=== PATIENT | female | born 1980 | race Caucasian/White ===

== ENCOUNTER 2018-10-27 02:43 | Emergency (ER) | payer BC ==
[2018-10-27] MEDS ORDERED: carBAMazepine 200 MG TAB PO STA (03:17)
[2018-10-27] MEDS ORDERED: predniSONE 20 MG TAB PO STA (03:19)
--- NOTE | 2018-10-27 04:33 | ED ---
Extremity Problem HPI - General Chief complaint: Extremity Problem,Nontraumatic Stated complaint: Ankle pain Time Seen by Provider: 10/27/18 02:48 Source: patient Mode of arrival: ambulatory Limitations: no limitations - History of Present Illness Initial comments: This patient is a 38-year-old woman with history of previous back pain which did require surgery, presents to be evaluated for episodic, shocking pains to the lateral aspect of the right ankle. Patient states this is been going on since the previous night though it has become a little more persistent tonight. Patient has not noted anything that helps the pain. She has not noted any exacerbating factors. No weakness or numbness of the extremity. Patient states that the pain will last for just a second and then there seems to be a variable amount of time between episodes. No associated symptoms. MD Complaint: extremity pain Onset/Timin -: days(s) Location: right, lower extremity History of Same: No Radiation: none Quality: other ("Shocking") Consistency: intermittent Improves with: nothing Worsens with: nothing Associated Symptoms: denies other symptoms - Related Data Home Medications Medication Instructions Recorded Confirmed Ibuprofen [Motrin] 800 mg PO Q6HR PRN 02/20/15 09/18/16 Cyclobenzaprine [Flexeril] 10 mg PO TID 09/12/16 09/18/16 Zolpidem Tartrate [Ambien] 5 mg PO HS 09/12/16 09/18/16 Hydrocodone/Acetaminophen [[place] 1 - 2 tab PO Q6HR PRN 09/18/16 09/18/16 5-325] Previous Rx's Medication Instructions Recorded HYDROcodone/APAP 5-325MG [[place] 1 tab PO Q6HR PRN #90 tab 09/17/16 5-325] carBAMazepine [Carbatrol] 100 mg PO Q12HR #14 cap 10/27/18 predniSONE 60 mg PO DAILY #30 tab 10/27/18 Allergies Allergy/AdvReac Type Severity Reaction Status Date / Time tramadol Allergy face numb Verified 10/27/18 02:51 Review of Systems ROS Statement: Those systems with pertinent positive or pertinent negative responses have been documented in the HPI. ROS Other: All systems not noted in ROS Statement are negative. Constitutional: Denies: fever, chills, weakness Respiratory: Denies: cough, dyspnea Cardiovascular: Denies: chest pain, edema Gastrointestinal: Denies: abdominal pain Musculoskeletal: Denies: back pain Skin: Denies: rash Neurological: Denies: weakness, numbness Past Medical History Past Medical History: No Reported History Additional Past Medical History / Comment(s): BACK PAIN History of Any Multi-Drug Resistant Organisms: None Reported Past Surgical History: Appendectomy, Back Surgery, Orthopedic Surgery, Uterine Ablation Additional Past Surgical History / Comment(s): 02/21/15 Laminectomy with decompression L5-S1, discectomy for decompression L5-S1 fluroscopic guidance, STEROID INJECTIONS-PAIN Past Anesthesia/Blood Transfusion Reactions: Motion Sickness, Postoperative Nausea & Vomiting (PONV) Additional Past Anesthesia/Blood Transfusion Reaction / Comment(s): STATES "I FREAK OUT IN POST OP WHEN I HAVE A FACE MASK ON" Past Psychological History: No Psychological Hx Reported Smoking Status: Former smoker Past Alcohol Use History: Rare Past Drug Use History: None Reported - Past Family History Father Family Medical History: Cancer, CVA/TIA General Exam Limitations: no limitations General appearance: alert, in no apparent distress Head exam: Present: atraumatic, normocephalic Eye exam: Present: normal appearance. Absent: scleral icterus, conjunctival injection Neck exam: Present: normal inspection, full ROM Respiratory exam: Present: normal lung sounds bilaterally. Absent: respiratory distress, wheezes, rales, rhonchi, stridor Cardiovascular Exam: Present: regular rate, normal rhythm, normal heart sounds, other (Pedal pulses are symmetric and normal in strength) GI/Abdominal exam: Present: soft. Absent: tenderness, pulsatile mass Extremities exam: Present: normal inspection, full ROM, normal capillary refill. Absent: tenderness, pedal edema, joint swelling, calf tenderness Back exam: Absent: paraspinal tenderness, vertebral tenderness Neurological exam: Present: alert, reflexes normal. Absent: motor sensory deficit Skin exam: Present: warm, dry, intact, normal color. Absent: rash Course Vital Signs 10/27/18 10/27/18 02:48 05:22 Temperature 97.8 F 97.4 F L Pulse Rate 80 65 Respiratory 17 15 Rate Blood Pressure 125/86 117/77 O2 Sat by Pulse 97 96 Oximetry Medical Decision Making - Medical Decision Making Patient is a 38-year-old woman who presents to be evaluated for neuropathic type pain along the lateral aspect of the right ankle. The exam findings are normal. No evidence of cauda equina. We'll treat patient for neuropathic pain and have her follow-up to ensure that there is resolution. Discussed the signs and symptoms which would require an immediate MRI and patient will follow-up with her back specialist. Disposition Clinical Impression: Neuropathy Disposition: HOME SELF-CARE Condition: Fair Instructions (If sedation given, give patient instructions): Peripheral Neuropathy (ED) Prescriptions: carBAMazepine [Carbatrol] 100 mg PO Q12HR #14 cap predniSONE 60 mg PO DAILY #30 tab Is patient prescribed a controlled substance at d/c from ED?: No Referrals: Michelle Lewis MD [Primary Care Provider] - 1-2 days
[2018-10-27] MEDS ORDERED: GABAPENTIN 100 MG CAP PO STA (04:57)
[2018-10-27 05:24] VITALS: BP 117/77; PULSE 65; RESP 15; TEMP 97.4
== END 2018-10-27 05:22 | disposition home or self-care (01) ==
LOC: EC 02:43
DX: G62.9 Polyneuropathy, unspecified (principal); M25.571 Pain in right ankle and joints of right foot; Z87.891 Personal history of nicotine dependence; Z79.899 Other long term (current) drug therapy; Z88.5 Allergy status to narcotic agent
CPT/HCPCS: 99283

== ENCOUNTER 2020-07-11 18:32 | Observation (INO) | payer BC ==
[2020-07-11] MEDS ORDERED: ASPIRIN 81 MG PO STA (18:57)
[2020-07-11] MEDS ORDERED: NITROGLYCERIN OINT 1 INCH/GM PACKET TOPICAL STA (18:57)
--- NOTE | 2020-07-11 18:59 | ED ---
General Adult HPI - General Chief complaint: Chest Pain Stated complaint: chest pain Time Seen by Provider: 07/11/20 18:42 Source: patient, RN notes reviewed Mode of arrival: ambulatory Limitations: no limitations - History of Present Illness Initial comments: Patient is a pleasant 39-year-old female presenting to the emergency Department with chest discomfort. Onset of symptoms was this morning when she woke. Symptoms were mild and waxing and waning. Symptoms are now more moderate rated 4/10 and more persistent. Discomfort feels like pressure without radiation. No associated dyspnea, nausea, or diaphoresis. No history of similar symptoms pr eviously. Patient was at urgent care earlier and had one nitroglycerin without improvement of symptoms. No leg pain or leg swelling. - Related Data Home Medications Medication Instructions Recorded Confirmed Cyclobenzaprine [Flexeril] 10 mg PO TID PRN 09/12/16 07/11/20 HYDROcodone/APAP 7.5-325MG [[place] 1 tab PO Q4-6H PRN 07/11/20 07/11/20 7.5-325] Allergies Allergy/AdvReac Type Severity Reaction Status Date / Time tramadol Allergy face numb Verified 07/11/20 20:17 Review of Systems ROS Statement: Those systems with pertinent positive or pertinent negative responses have been documented in the HPI. ROS Other: All systems not noted in ROS Statement are negative. Constitutional: Denies: fever Eyes: Denies: eye pain ENT: Denies: ear pain Respiratory: Denies: cough, dyspnea Cardiovascular: Reports: as per HPI, chest pain Endocrine: Denies: fatigue Gastrointestinal: Denies: abdominal pain Genitourinary: Denies: dysuria Musculoskeletal: Denies: back pain Skin: Denies: rash Neurological: Denies: weakness Past Medical History Past Medical History: No Reported History Additional Past Medical History / Comment(s): BACK PAIN History of Any Multi-Drug Resistant Organisms: None Reported Past Surgical History: Appendectomy, Back Surgery, Orthopedic Surgery, Uterine Ablation Additional Past Surgical History / Comment(s): 02/21/15 Laminectomy with decompression L5-S1, discectomy for decompression L5-S1 fluroscopic guidance, STEROID INJECTIONS-PAIN Aug Laminectomy L5-L4 Past Anesthesia/Blood Transfusion Reactions: Motion Sickness, Postoperative Nausea & Vomiting (PONV) Additional Past Anesthesia/Blood Transfusion Reaction / Comment(s): STATES "I FREAK OUT IN POST OP WHEN I HAVE A FACE MASK ON" Past Psychological History: No Psychological Hx Reported Smoking Status: Former smoker Past Alcohol Use History: Rare Past Drug Use History: None Reported - Past Family History Father Family Medical History: Cancer, CVA/TIA General Exam Limitations: no limitations General appearance: alert, in no apparent distress Head exam: Present: normocephalic Eye exam: Present: normal appearance Neck exam: Present: normal inspection Respiratory exam: Present: normal lung sounds bilaterally. Absent: chest wall tenderness Cardiovascular Exam: Present: regular rate, normal rhythm Expanded Peripheral pulses: 2+: Radial (R), Radial (L), Dorsalis Pedis (R), Dorsalis Pedis (L) GI/Abdominal exam: Present: soft. Absent: tenderness Extremities exam: Present: normal inspection. Absent: pedal edema, calf tenderness Neurological exam: Present: alert Psychiatric exam: Present: normal affect, normal mood Skin exam: Present: normal color Course Vital Signs 07/11/20 18:34 Temperature 98.4 F Pulse Rate 77 Respiratory 18 Rate Blood Pressure 147/89 O2 Sat by Pulse 96 Oximetry EKG Findings - EKG Comments: EKG Findings:: Normal sinus rhythm 73. OR 152. QRS 90. QT 406. QTc 447. Normal axis. Normal QRS. No acute ST change. Medical Decision Making - Medical Decision Making Patient reevaluated and resting comfortably in bed, unchanged. Case discussed with Dr. Miller, who will admit For hospital call. Patient updated - Lab Data Result diagrams: 07/11/20 19:11 07/11/20 19:11 Lab Results 07/11/20 07/11/20 07/11/20 Range/Units 19:11 19:11 19:11 WBC 7.2 (3.8-10.6) k/uL RBC 4.80 (3.80-5.40) m/uL Hgb 14.4 (11.4-16.0) gm/dL Hct 42.2 (34.0-46.0) % MCV 88.1 (80.0-100.0) fL MCH 30.0 (25.0-35.0) pg MCHC 34.1 (31.0-37.0) g/dL RDW 13.3 (11.5-15.5) % Plt Count 301 (150-450) k/uL Neutrophils % 67 % Lymphocytes % 24 % Monocytes % 6 % Eosinophils % 2 % Basophils % 0 % Neutrophils # 4.8 (1.3-7.7) k/uL Lymphocytes # 1.8 (1.0-4.8) k/uL Monocytes # 0.4 (0-1.0) k/uL Eosinophils # 0.2 (0-0.7) k/uL Basophils # 0.0 (0-0.2) k/uL PT 9.6 (9.0-12.0) sec INR 0.9 (<1.2) APTT 23.7 (22.0-30.0) sec D-Dimer 0.32 (<0.60) mg/L FEU Sodium 139 (137-145) mmol/L Potassium 3.9 (3.5-5.1) mmol/L Chloride 105 (98-107) mmol/L Carbon Dioxide 25 (22-30) mmol/L Anion Gap 9 mmol/L BUN 12 (7-17) mg/dL Creatinine 0.63 (0.52-1.04) mg/dL Est GFR (CKD-EPI)AfAm >90 (>60 ml/min/1.73 sqM) Est GFR (CKD-EPI)NonAf >90 (>60 ml/min/1.73 sqM) Glucose 98 (74-99) mg/dL Calcium 9.5 (8.4-10.2) mg/dL Magnesium 1.9 (1.6-2.3) mg/dL Total Bilirubin 0.7 (0.2-1.3) mg/dL AST 44 H (14-36) U/L ALT 42 H (4-34) U/L Alkaline Phosphatase 81 (38-126) U/L Troponin I (0.000-0.034) ng/mL Total Protein 7.5 (6.3-8.2) g/dL Albumin 4.5 (3.5-5.0) g/dL 07/11/20 Range/Units 19:11 WBC (3.8-10.6) k/uL RBC (3.80-5.40) m/uL Hgb (11.4-16.0) gm/dL Hct (34.0-46.0) % MCV (80.0-100.0) fL MCH (25.0-35.0) pg MCHC (31.0-37.0) g/dL RDW (11.5-15.5) % Plt Count (150-450) k/uL Neutrophils % % Lymphocytes % % Monocytes % % Eosinophils % % Basophils % % Neutrophils # (1.3-7.7) k/uL Lymphocytes # (1.0-4.8) k/uL Monocytes # (0-1.0) k/uL Eosinophils # (0-0.7) k/uL Basophils # (0-0.2) k/uL PT (9.0-12.0) sec INR (<1.2) APTT (22.0-30.0) sec D-Dimer (<0.60) mg/L FEU Sodium (137-145) mmol/L Potassium (3.5-5.1) mmol/L Chloride (98-107) mmol/L Carbon Dioxide (22-30) mmol/L Anion Gap mmol/L BUN (7-17) mg/dL Creatinine (0.52-1.04) mg/dL Est GFR (CKD-EPI)AfAm (>60 ml/min/1.73 sqM) Est GFR (CKD-EPI)NonAf (>60 ml/min/1.73 sqM) Glucose (74-99) mg/dL Calcium (8.4-10.2) mg/dL Magnesium (1.6-2.3) mg/dL Total Bilirubin (0.2-1.3) mg/dL AST (14-36) U/L ALT (4-34) U/L Alkaline Phosphatase (38-126) U/L Troponin I <0.012 (0.000-0.034) ng/mL Total Protein (6.3-8.2) g/dL Albumin (3.5-5.0) g/dL - Radiology Data Radiology results: image reviewed (Chest x-ray shows no acute process) Disposition Clinical Impression: Chest pain Disposition: ADMITTED IP TO THIS HOSP Is patient prescribed a controlled substance at d/c from ED?: No Referrals: Michelle Lewis MD [Primary Care Provider] - 1-2 days Decision Time: 20:31
[2020-07-11 19:35] LABS: Basophils % (A) 0 %; Eosinophils # (A) 0.2 k/uL (0-0.7); Eosinophils % (A) 2 %; HCT 42.2 % (34.0-46.0); HGB 14.4 gm/dL (11.4-16.0); Lymphocytes # (A) 1.8 k/uL (1.0-4.8); Lymphocytes % (A) 24 %; MCHC 34.1 g/dL (31.0-37.0); MCV 88.1 fL (80.0-100.0); Mean Platelet Volume 6.9; Monocytes # (A) 0.4 k/uL (0-1.0); Monocytes % (A) 6 %; Neutrophils # (A) 4.8 k/uL (1.3-7.7); Neutrophils % (A) 67 %; Platelet Count 301 k/uL (150-450); RDW 13.3 % (11.5-15.5); WBC 7.2 k/uL (3.8-10.6)
[2020-07-11 19:36] LABS: ALT 42 U/L (4-34); AST 44 U/L (14-36); African American GFR (CKD) >90 (>60 ml/min/1.73 sqM); Albumin 4.5 g/dL (3.5-5.0); Alkaline Phosphatase 81 U/L (38-126); Anion Gap 9 mmol/L; Blood Urea Nitrogen 12 mg/dL (7-17); Calcium 9.5 mg/dL (8.4-10.2); Carbon Dioxide 25 mmol/L (22-30); Chloride 105 mmol/L (98-107); Glucose 98 mg/dL (74-99); Magnesium 1.9 mg/dL (1.6-2.3); Non-African American GFR(CKD) >90 (>60 ml/min/1.73 sqM); Potassium 3.9 mmol/L (3.5-5.1); Sodium 139 mmol/L (137-145); Total Bilirubin 0.7 mg/dL (0.2-1.3); Total Protein 7.5 g/dL (6.3-8.2)
--- NOTE | 2020-07-11 19:39 | XR ---
EXAMINATION TYPE: XR chest 2V DATE OF EXAM: 07/11/2020 COMPARISON: 09/08/2016 HISTORY: Chest pain TECHNIQUE: FINDINGS: There is no heart failure nor confluent pneumonic infiltrate. There are chest leads. Costop hrenic angles are clear. Heart size is normal. Bony thorax is intact. IMPRESSION: No active cardiopulmonary disease. Normal heart. No change.
[2020-07-11 19:50] LABS: D-Dimer 0.32 mg/L FEU (<0.60); INR 0.9 (<1.2); Prothrombin Time 9.6 sec (9.0-12.0)
[2020-07-11 19:51] LABS: Partial Thromboplastin Time 23.7 sec (22.0-30.0)
[2020-07-11] MEDS ORDERED: NITROGLYCERIN SL TABS 0.4 MG TAB SUBLINGUAL PRN (20:31)
[2020-07-11 23:14] VITALS: RESP 16
[2020-07-11] MEDS: HYDROcodone/APAP 7.5-325MG 1 EACH TAB PO PRN (23:20)
[2020-07-12] MEDS: NITROGLYCERIN OINT 1 INCH/GM PACKET TOPICAL SCH ×2 (05:24→05:41)
[2020-07-12] MEDS: HYDROcodone/APAP 7.5-325MG 1 EACH TAB PO PRN (05:29)
[2020-07-12 05:30] LABS: Cholesterol 234 mg/dL (<200); HDL Cholesterol 43 mg/dL (40-60); LDL Cholesterol,Calculated 152 mg/dL (0-99); Triglycerides 194 mg/dL (<150)
[2020-07-12 08:38] VITALS: BP 109/68; PULSE 95; TEMP 72
[2020-07-12] MEDS ORDERED: ASPIRIN 325 MG TAB PO SCH (09:00)
[2020-07-12] MEDS ORDERED: ASPIRIN 81 MG PO SCH (09:00)
--- NOTE | 2020-07-12 09:02 | P.HPIM ---
History of Present Illness This is a pleasant 39 years old female with past medical history of chronic back pain status post back surgery with laminectomy and decompression of L5-S1 in 2015. Presents because of chest painperiod of one-day duration 1 it's a started yesterday morning, etc. in the right upper chest and felt like a pressure, nonradiating about 4/10 in severity associated with nausea vomiting or dyspnea or coughing or dizziness or palpitation. No change in urine or bowel habits. No fever Patient went to urgent care where she got GI cocktail and metoprolol with no much benefit so they referred her to emergency room. She denies smoking, no illicit drugs and occasional alcohol I offered to do test in the serum however she declined stating that she had uterine ablation and her has vasectomy. Risks/benefits are explained Vitals are stable. Labs including CBC, BMP are unremarkable d-dimer is negative at 0.32. Serial troponin 3 less than 0.012. Liver enzymes slightly elevated with AST 44 and ALT 42 EKG showed normal sinus rhythm at [address]-T changes and QTC 447, chest x-ray: No acute process. In the emergency room she was started on aspirin and sports apparel internship was consulted Jewelry Sorter evaluated the patient and they might recommend stress test Review of Systems CONSTITUTIONAL: No fever, no malaise, no fatigue. HEENT: No recent visual problems or hearing problems. Denied any sore throat. CARDIOVASCULAR: No orthopnea, PND, no palpitations, no syncope. PULMONARY: No shortness of breath, no cough, no hemoptysis. GASTROINTESTINAL: No diarrhea, no nausea, no vomiting, no abdominal pain. Normoactive bowel sounds. NEUROLOGICAL: No headaches, no weakness, no numbness. HEMATOLOGICAL: Denies any bleeding or petechiae. GENITOURINARY: Denies any burning micturition, frequency, or urgency. MUSCULOSKELETAL/RHEUMATOLOGICAL: Denies any joint pain, swelling, or any muscle pain. ENDOCRINE: Denies any polyuria or polydipsia. Past Medical History Past Medical History: No Reported History Additional Past Medical History / Comment(s): BACK PAIN History of Any Multi-Drug Resistant Organisms: None Reported Past Surgical History: Appendectomy, Back Surgery, Orthopedic Surgery, Uterine Ablation Additional Past Surgical History / Comment(s): 02/21/15 Laminectomy with decompression L5-S1, discectomy for decompression L5-S1 fluroscopic guidance, STEROID INJECTIONS-PAIN Aug Laminectomy L5-L4 Past Anesthesia/Blood Transfusion Reactions: No Reported Reaction, Motion Sickness, Postoperative Nausea & Vomiting (PONV) Additional Past Anesthesia/Blood Transfusion Reaction / Comment(s): STATES "I FREAK OUT IN POST OP WHEN I HAVE A FACE MASK ON" Past Psychological History: No Psychological Hx Reported Additional Psychological History / Comment(s): . Smoking Status: Former smoker Past Alcohol Use History: Rare Additional Past Alcohol Use History / Comment(s): Pt started smoking in 1996 and quit in 2006. Past Drug Use History: None Reported - Past Family History Father Family Medical History: Cancer, CVA/TIA Medications and Allergies Home Medications Medication Instructions Recorded Confirmed Type Cyclobenzaprine [Flexeril] 10 mg PO TID PRN 09/12/16 07/11/20 History HYDROcodone/APAP 7.5-325MG [[place] 1 tab PO Q4-6H PRN 07/11/20 07/11/20 History 7.5-325] Allergies Allergy/AdvReac Type Severity Reaction Status Date / Time tramadol Allergy face numb Verified 07/11/20 20:17 Physical Exam Vitals: Vital Signs Temp Pulse Pulse Resp BP BP Pulse Ox 07/12/20 03:00 97.9 F 73 16 109/71 95 07/11/20 22:56 98.2 F 69 16 125/75 97 07/11/20 21:41 98.1 F 60 18 138/88 97 07/11/20 20:44 80 16 134/88 99 07/11/20 18:34 98.4 F 77 18 147/89 96 Intake and Output 07/11/20 07/12/20 07/12/20 22:59 06:59 14:59 Intake Total 480 Balance 480 Intake: Oral 480 Other: Voiding Method Toilet Toilet # Voids 1 Weight 114.305 kg -GENERAL: The patient is alert and oriented x3, not in any acute distress. obese HEENT: Pupils are round and equally reacting to light. EOMI. No scleral icterus. No conjunctival pallor. Normocephalic, atraumatic. No pharyngeal erythema. No thyromegaly. CARDIOVASCULAR: S1 and S2 present. No murmurs, rubs, or gallops. PULMONARY: Chest is clear to auscultation, no wheezing or crackles. ABDOMEN: Soft, nontender, nondistended, normoactive bowel sounds. No palpable organomegaly. MUSCULOSKELETAL: No joint swelling or deformity. EXTREMITIES: No cyanosis, clubbing, or pedal edema. NEUROLOGICAL: Gross neurological examination did not reveal any focal deficits. SKIN: No rashes. no petechiae. Results CBC & Chem 7: 07/11/20 19:11 07/11/20 19:11 Labs: Abnormal Lab Results - Last 24 Hours (Table) 07/11/20 07/11/20 Range/Units 19:11 19:11 AST 44 H (14-36) U/L ALT 42 H (4-34) U/L Triglycerides 194 H (<150) mg/dL Cholesterol 234 H (<200) mg/dL LDL Cholesterol, Calc 152 H (0-99) mg/dL Thrombosis Risk Factor Assmnt - Choose All That Apply Each Factor Represents 1 point: Obesity (BMI >25) Thrombosis Risk Factor Assessment Total Risk Factor Score: 1 Thrombosis Risk Factor Assessment Level: Low Risk Assessment and Plan Assessment: Chest pain, rule out cardiac causes. D-dimer is negative Chronic low back pain, status post back surgery with laminectomy and decompression of L5-S1 Mildly elevated liver enzymes obesity with BMI of 41 Plan: This is a pleasant 39 years old female presents with chest pain. We'll check her troponin and cardiology consult. follow-up stress test result Labs and medication were reviewed.. Continue same treatment. Continue with symptomatic treatment. Resume home medication. Monitor lytes and vitals. DVT and GI prophylaxis. Further recommendationsas per clinical course of the patient
--- NOTE | 2020-07-12 09:31 | CONS ---
CONSULTATION Ms. Seay is a 39-year-old female with no prior documented history of coronary artery disease who woke up yesterday with right-sided discomfort persisted throughout the day. She went to Urgent Care, subsequently the emergency room. The patient used to be more active physically but has not been as active during the pandemic, but she had no exertional chest discomfort. The discomfort yesterday was not respirophasic nor positional. She has no associated dyspnea. No dizziness. No palpitation. No syncope. No PND, orthopnea, or peripheral edema. Her coronary risk factor is negative for hypertension or diabetes. she is a nonsmoker. MEDICATION: At home include [place] and Flexeril. REVIEW OF SYSTEMS: RESPIRATORY SYSTEM: She has no documented history of asthma, emphysema or bronchitis. GI SYSTEM: No recent GI bleeding, no peptic ulcer disease. SYSTEM: No dysuria or hematuria. NERVOUS SYSTEM: No stroke or seizure. PHYSICAL EXAMINATION: She is a 39-year-old female, alert, oriented, in no apparent distress. Blood pressure 109/70 with a heart rate in the 70s. HEAD: Normocephalic. EYES: Sclerae nonicteric. NECK: Good upstroke, no bruit, no jugular venous distention. LUNGS: Clear to auscultation. HEART: Regular rate and rhythm. S1, S2. No S3. No S4. No murmur, no rub. Chest wall with no chest wall tenderness. ABDOMEN: Soft, obese, nontender. Positive bowel sounds, no organomegaly. EXTREMITIES: No edema, intact distal pulses. LAB DATA: Revealed troponin 0.012 for 3 samples. AST 44, ALT of 42, cholesterol 234 with an LDL of 152. BUN and creatinine of 12 and 0.63, potassium 3.9 hemoglobin 14.4. EKG reveals sinus mechanism, normal axis, intervals, normal echocardiogram. Chest x-ray revealed no evidence of infiltrate. IMPRESSION: Chest discomfort, atypical for ischemic heart disease. RECOMMENDATION: I would stop her nitrate, I will proceed with a stress echocardiogram. If there is no evidence of inducible ischemia, then no further cardiac workup will be needed. Thank you for this consult. Will follow with you. MMODL / IJN: [id number] /
--- NOTE | 2020-07-12 10:52 | EST ---
EXERCISE STRESS AGE: 39 SEX: F HT: 65". WT: 252 PROTOCOL: Stress Echo STAGE: 3 DURATION OF EXERCISE: 8:09 HEART RATE REST: 73 BLOOD PRESSURE REST: 101/68 MAXIMUM HEART RATE ACHIEVED: 163 MAXIMUM BLOOD PRESSURE: 154/46 85% MPHR: 154 100% MPHR: 181 METS: 9.7 INDICATIONS: Chest pain. CLINICAL INFORMATION: Baseline rhythm is a sinus mechanism, normal axis, intervals, normal echocardiogram. Baseline blood pressure 101/68 mmHg. Patient exercised on Ezequiel protocol for 8 minute 9 seconds reaching peak rate 163 beats per minute which is equal to 90% maximum predicted heart rate. Peak blood pressure 154/46 mmHg. Test was terminated due to fatigue. She had chest discomfort throughout the procedure without any changes. Electrocardiograph monitoring revealed no evidence of diagnostic ischemic ST deviation. FINDINGS: Baseline echocardiogram revealed normal wall motion. At peak exercise, there was normal wall motion augmentation with no hypokinesis or dyskinesis. CONCLUSION: 1. Average exercise tolerance with normal echocardiograph response to exercise. 2. Normal stress echocardiogram with no evidence of stress-induced ischemia. MMODL / IJN: [id number] /
--- NOTE | 2020-07-12 10:53 | ECHOF ---
Referral Reason:cp MEASUREMENTS -------- HEIGHT: 165.1 cm WEIGHT: 114.3 kg BP: 125/75 RVIDd: 3.4 cm (< 3.3) IVSd: 1.3 cm (0.6 - 1.1) LVIDd: 4.3 cm (3.9 - 5.3) LVPWd: 1.3 cm (0.6 - 1.1) IVSs: 1.8 cm LVIDs: 3.0 cm LVPWs: 1.6 cm LA Diam: 3.5 cm (2.7 - 3.8) Ao Diam: 3.5 cm (2.0 - 3.7) AV Cusp: 2.3 cm (1.5 - 2.6) MV EXCURSION: 17.007 mm (> 18.000) MV EF SLOPE: 66 mm/s (70 - 150) EPSS: 1.4 cm MV E Bill: 0.86 m/s MV DecT: 238 ms MV A Bill: 0.72 m/s MV E/A Ratio: 1.20 RAP: 5.00 mmHg RVSP: 28.65 mmHg FINDINGS -------- Sinus rhythm. This was a technically adequate study. The left ventricular size is normal. There is mild concentric left ventricular hypertrophy. Overa ll left ventricular systolic function is normal with, an EF between 55 - 60 %. The right ventricle is mildly enlarged. The left atrial size is normal. The right atrial size is normal. The aortic valve is trileaflet, and appears structurally normal. No aortic stenosis or regurgitation. The mitral valve is normal. There is trace to mild mitral regurgitation. Mild tricuspid regurgitation present. Right ventricular systolic pressure is normal at < 35 mmHg. The pulmonic valve was not well visualized. There is no pulmonic regurgitation present. The aortic root size is normal. IVC Not well visulized. There is no pericardial effusion. CONCLUSIONS -------- 1. There is mild concentric left ventricular hypertrophy. 2. Overall left ventricular systolic function is normal with, an EF between 55 - 60 %. 3. The right ventricle is mildly enlarged. 4. The left atrial size is normal. 5. The aortic valve is trileaflet, and appears structurally normal. No aortic stenosis or regurgitati on. 6. There is trace to mild mitral regurgitation. 7. Mild tricuspid regurgitation present. 8. There is no pericardial effusion. PHARMACY ANCILLARY: Paloma Arnett RDCS
== END 2020-07-12 13:00 | disposition home or self-care (01) ==
LOC: EC 18:32 → 3NCARDOBS 20:32
PROVIDERS: ADMIT Internal Medicine; ATTEND Internal Medicine
DX: R07.9 Chest pain, unspecified (principal); E66.9 Obesity, unspecified; G89.29 Other chronic pain; Z68.41 Body mass index [BMI] 40.0-44.9, adult; Z87.891 Personal history of nicotine dependence
CPT/HCPCS: 99285; 93005 ×2; 36415; 93351; 93306; 85379; 80061; 80053; 83735; 84484 ×2; 85025; 85610; 85730; 71046; G0378 ×2; Q9950

== ENCOUNTER → 2022-08-27 | Outpatient (CLI) | payer BC ==
--- NOTE | 2022-08-27 08:13 | XR ---
EXAMINATION TYPE: XR chest 2V DATE OF EXAM: 08/27/2022 COMPARISON: Two-view chest x-ray dated September 08, 2016 HISTORY: 41-year-old female presents for presurgical chest x-ray. TECHNIQUE: Frontal and lateral views of the chest are obtained. FINDINGS: There is no focal air space opacity, pleural effusion, or pneumothorax seen. The cardiac silhouette size is within normal limits. The osseous structures are intact. IMPRESSION: No acute cardiopulmonary process.
[2022-08-27 08:16] LABS: Appearance,Urine Cloudy (Clear); Bacteria,Urine Occasional /hpf; Bilirubin,Urine Negative (Negative); Blood,Urine Negative (Negative); Color,Urine Yellow; Glucose,Urine (UA) Negative (Negative); Ketones,Urine Negative (Negative); Leukocyte Esterase,Urine Large (Negative); Mucus,Urine Few /hpf; Nitrite,Urine Negative (Negative); PH, Urine 5.5 (5.0-8.0); Protein,Urine Trace (Negative); RBC,Urine 2 /hpf (0-5); Specific Gravity,Urine 1.026 (1.001-1.035); Squamous Epithelial Cell,Urine 5 /hpf (0-4); Urobilinogen,Urine <2.0 mg/dL (<2.0); WBC,Urine 6 /hpf (0-5)
[2022-08-27 08:29] LABS: Partial Thromboplastin Time 25.8 sec (22.0-30.0); Prothrombin Time 10.2 sec (9.0-12.0)
[2022-08-27 10:29] LABS: HCT 38.5 % (37.2-46.3); HGB 13.4 g/dL (12.0-15.0); MCH 29.6 pg (27.0-32.0); MCHC 34.8 g/dL (32.0-37.0); Mean Platelet Volume 9.1 fL (9.5-12.2); NRBC Per 100 WBC 0 /100 WBCS (0.0-0.0); Platelet Count 300 X 10*3/uL (140-440); RBC 4.53 X 10*6/uL (4.10-5.20); RDW 12.8 % (11.5-14.5)
[2022-08-27 10:46] LABS: African American GFR (CKD) 131.3 (60.0-200.0); Anion Gap 9.8 mmol/L (10.00-18.00); BUN/Creat Ratio 22.37 Ratio (12.00-20.00); Blood Urea Nitrogen 13.4 mg/dL (9.0-27.0); Calcium 9.4 mg/dL (8.7-10.3); Carbon Dioxide 26.7 mmol/L (20.0-27.5); Non-African American GFR(CKD) 113.3 (60.0-200.0); Potassium 3.8 mmol/L (3.5-5.5)
== END | disposition home or self-care (01) ==
LOC: LABPAT 06:59
PROVIDERS: ATTEND Orthopaedic Surgery Orthopaedic Surgery of the Spine
DX: Z01.812 Encounter for preprocedural laboratory examination (principal); M48.061 Spinal stenosis, lumbar region without neurogenic claudication
CPT/HCPCS: 71046; 80048; 81001; 85027; 85610; 85730; 87070; 93005

== ENCOUNTER 2022-09-03 08:56 | Observation (INO) | payer BC ==
[~2022-09-03 08:56] MED LIST: DEXAMETHASONE SOD PHOSPHATE 4 MG/ML 1 ML VIAL IV ONE; MIDAZOLAM 2 MG/2 ML VIAL IV PRN; ONDANSETRON 4 MG/2 ML VIAL IVP ONE; SCOPOLAMINE 1 MG/72 HR PATCH TRANSDERM ONE; VANCOMYCIN 1,500 MG in SODIUM CHLORIDE 0.9% 500 ML 500 ML IVPB PRN; ceFAZolin 1,000 MG in SODIUM CHLORIDE 0.9% IRRIGATIO 1,000 ML IRRIGATION PRN; fentaNYL (PF) 50 MCG/ML 2 ML AMP IV PRN
[2022-09-03] MEDS: LACTATED RINGERS 1,000 ML IV SCH (09:51)
[2022-09-03] MEDS ORDERED: LIDOCAINE 1% (10MG/ML) FOR IV START INTRADERMA ONE (09:51)
[2022-09-03] MEDS ORDERED: GLYCOPYRROLATE 0.2 MG/ML 2 ML VIAL ONE (10:36)
[2022-09-03] MEDS ORDERED: MIDAZOLAM 2 MG/2 ML VIAL ONE (10:36)
[2022-09-03] MEDS ORDERED: LIDOCAINE 2% INJ 20 MG/ML (2 ML VIAL) ONE (10:36)
[2022-09-03] MEDS ORDERED: ROCURONIUM 10 MG/ML (5 ML VIAL) IV ONE (10:36)
[2022-09-03] MEDS ORDERED: PROPOFOL 10 MG/ML 20 ML VIAL IV ONE (10:36)
[2022-09-03] MEDS ORDERED: NEOSTIGMINE 1 MG/ML 10 ML VIAL ONE (10:36)
[2022-09-03] MEDS ORDERED: ePHEDrine 50 MG/ML 1 ML VIAL ONE (10:36)
[2022-09-03] MEDS ORDERED: SUCCINYLCHOLINE CHLORIDE 200 MG/10 ML VIAL IV ONE (10:36)
[2022-09-03] MEDS ORDERED: fentaNYL (PF) 50 MCG/ML 2 ML AMP ONE (10:36)
[2022-09-03] MEDS ORDERED: THROMBIN (BOVINE) 5,000 UNIT VIAL TOPICAL ONE (10:40)
[2022-09-03] MEDS ORDERED: LIDOCAINE 0.5%-EPI 1:200,000 50 ML VIAL SQ ONE (10:40)
[2022-09-03] MEDS ORDERED: GELATIN SPONGE,ABSORB (LARGE) 1 EACH SPONGE TOPICAL ONE (10:40)
[2022-09-03] MEDS ORDERED: LACTATED RINGERS 1,000 ML IV ONE (13:10)
[2022-09-03] MEDS ORDERED: BENZOCAINE/MENTHOL LOZENG 1 EACH LOZENGE MUCOUS MEM PRN (14:08)
--- NOTE | 2022-09-03 14:08 | FL ---
EXAMINATION TYPE: FL guidance operating room DATE OF EXAM: 09/03/2022 HISTORY: Fluoroscopy time 17 seconds of fluoroscopy provided. IMPRESSION: 1. Fluoroscopy time.
--- NOTE | 2022-09-03 14:12 | XR ---
EXAM TYPE: LUMBAR SPINE X RAY SERIES COMPARISON: 10/08/2015 HISTORY: Postsurgical TECHNIQUE: 6 views are submitted. FINDINGS: Limited resolution intraoperative images demonstrate intraoperative surgical change and postsurgical changes.. IMPRESSION: 1. Postoperative change.
[2022-09-03] MEDS: HYDROmorphone 0.5 MG/0.5 ML SYRINGE IVP PRN (14:19)
--- NOTE | 2022-09-03 14:23 | P.OP ---
Date of Procedure: 09/03/22 Preoperative Diagnosis: Recurrent disc herniation L4 5 L5-S1, spinal stenosis L4 5 L5-S1 , history of laminectomy decompression L4 5 L5-S1, lower extremity radiculopathy with degenerative disc disease, facet arthropathy Postoperative Diagnosis: Recurrent disc herniation L4 5 L5-S1, spinal stenosis L4 5 L5-S1 , history of laminectomy decompression L4 5 L5-S1, lower extremity radiculopathy with degenerative disc disease, facet arthropathy Anesthesia: GETA Pathology: none sent Condition: stable Disposition: PACU Description of Procedure: DESCRIPTION OF PROCEDURE(S): BRIEF OPERATIVE NOTE Preoperative Diagnosis: Recurrent disc herniation L4 5 L5-S1, spinal stenosis L4 5 L5-S1 , history of laminectomy decompression L4 5 L5-S1, lower extremity r adiculopathy with degenerative disc disease, facet arthropathy Postoperative Diagnosis: Recurrent disc herniation L4 5 L5-S1, spinal stenosis L4 5 L5-S1 , history of laminectomy decompression L4 5 L5-S1, lower extremity radiculopathy with degenerative disc disease, facet arthropathy Procedure: Revision Laminectomy and decompression L4 5 L5-S1 Computer CT navigation aided Minimally invasive Posterior lateral decompression and facet fusion L4 5 L5-S1 Minimally invasive Transforaminal lumbar interbody fusion for a 360 fusion L4 5 L5-S1 Revision Discectomy for decompression L4 5 L5-S1 Placement of interbody graft L4 5 L5-S1 Use of computer navigation for fusion Local autogenous bone grafting Aspiration of bone marrow from the vertebral body pedicle at L4 on the right Use of bone graft extenders Surgeon: Dr. Peres Jewelry Polisher: Dandy SEGURA who is present throughout the entire the case persistence during positioning, dissection, exposure, visualization, and all crucial elements of the case as well as closure. Anesthesia: General anesthesia per Dr. Perez Estimated blood loss: Approximately 150 mL Complications: None apparent Components implanted: K2M minimally invasive [place] pedicle screw system withscrews measuring 6.5 mm in diameter to rods one Cameron interbody cage with 10 mL of osteo amp bio4 bone graft substitute and 30 mL of the BX bone fibers to supplement the local autogenous bone graft and bone marrow aspirate Disposition: To recovery room in good stable condition. OPERATIVE INDICATIONS The patient has had severe issues at their lower extremity in her lower back over the past several years with significant worsening over the past several months. Over the past few months the patient had pain at their back and their lower extremities. The patient has history of issues at her lower back and lower extremity radiculopathy and she had undergone prior laminectomy decompression the past . In the past her disc herniation at L4 5 on the right where she had a right-sided laminectomy decompression and on the left at L5-S1 she had done well after those laminectomies in the past for several years, however the patient had new severe radiculopathy and was found have significant disc herniation with extruded fragment L4 5 and recurrent disc protrusion with stenosis at L5-S1. The patient is having severe radicular symptoms at their lower extremity with weakness. The patient is having significant pain in their back. They are unable to obtain any comfort. We did aggressive conservative treatment with medications therapy and interventional pain management however thery were not having any relief. With the history the patient's laminectomy and severe disc degeneration we felt that she would have a significantly high risk of further instability and iatrogenic instability with revision laminectomy. We felt that she would be best served if she were to undergo decompression to have stabilization with fusion as well. The patient has been through conservative treatment. We discussed various treatment options including surgery, and the patient wishes to proceed with surgery We discussed the risk, patient's alternatives and benefits of surgery including but not limited to, risk of bleeding risk of infection, risk of need for further surgery, risk of decreased, loss of motion, muscle function, malunion nonunion, hardware failure, nerve damage, paralysis, heart attack, blindness and . They understood issues with the current pandemic and the possibility of exposure. OPERATIVE SUMMARY After discussing all the risks, patient alternatives and benefits at length, the patient elected to proceed with surgical intervention, signed informed consent, and presented for their procedure. The patient was seen and examined in the preoperative holding area and the surgical site was marked. The patient was given antibiotics and brought to the operating room. The patient was sedated and intubated by anesthesia in standard fashion. The patient was positioned on to the operating room table in a prone position on the appropriate frame which was well-padded and well molded. We were careful to pad any bony prominences and pressure points. We were careful to maintain the patient's cervical spine and good neutral alignment and position throughout. The patient was prepped and draped in a normal standard fashion. An appropriate timeout and keystone protocol performed. We were able to proceed with the surgery. The local wound area was infiltrated with local anesthetic. Over the right iliac crest I was able to make small stab incisions and establish a guidepin screw fixation to the iliac crest 2. I was able place the computer referencing device over the guidepins to establish an appropriate reference point for the Ziem CT navigation. We then were able to place patient in an appropriate drape and do a navigation spin for visualization and 3-D reconstruction of the lumbar spine. I was able utilize C-arm guidance and navigation to establish appropriate position over the pedicles bilaterally at the appropriate levels . With the appropriate levels confirmed was able to make small incisions over the appropriate pedicle sites bilaterally. Utilizing the computer navigation device I was able to establish bony landmarks at the right iliac crest for a bony reference point for the navigation device. I was able to establish a Jamshidi needle over the lateral aspect of the pedicle and advanced the trocar into the pedicle being careful not to breech superiorly inferiorly medially or laterally using computer navigation device at L4 and L5 and S1. Position was confirmed regularly with AP and lateral images on C-arm and with the computer navigation device at the appropriate levels bilaterally. I was able to establish the trocar into the pedicle appropriately into the posterior aspect of the vertebral body bilaterally at the appropriate levels. This was done at each of the pedicle positions and each of the vertebrae of L4-L5 and S1. At the superior vertebrae at L4 on the right I was able to take approximately 25 mL of bone aspiration for use later in the case to supplement the allograft and autograft bone. I was able place the guidewire into the trocar and into the vertebral body appropriately under C-arm guidance. Dissection was taken down over the wire to the appropriate starting position for the screw placed. The appropriate length screw was chosen, threaded over the guidewire and screwed appropriately into the pedicle and vertebral body under C-arm guidance in excellent alignment and position with good bony purchase. This is done at each of the screw sites at the appropriate levels.. With the screws intact I extended the incision to connect the screw hole sites on the most symptomatic side on the right side. I dissected down to establish access over the pars and lamina to the base of the spinous process. I was able to expose the facet joint. The capsule the facet was taken down and showed some facet arthrosis at the joint. I was able to use a combination of curettes and Kerrison rongeurs and a high-speed drill to take down the facet joint and do a facetectomy. I was able get excellent foraminal decompression and central decompression with undermining across midline to perform a laminectomy centrally and contralaterally. There is a very large disc herniation with extruded fragment at L4 5 which was able to be removed. As able get good central decompression. The ligamentum flavum was taken down to further decompress centrally and at bilateral neural foramen. I was able to expose the disc space and visualize the traversing nerve root. Note was made of some disc protrusion and disc herniation that was abutting the traversing nerve root at the level causing further compression of the nerve root. I was able to establish a annulotomy at the appropriate level protecting soft tissue and neural structures. Note was made of some disc desiccation at the disc both at L4 5 and L5-S1. I performed a complete discectomy with accommodation of curettes and rasps and scrapers. I was able get good endplate preparation at the disc space. I sized for the appropriate size interbody spacer protecting the soft tissue and neural structures. The wound was copiously irrigated and suctioned dry. There is no evidence of any dural tear or leak. I was able to pack the disc space with local autogenous bone graft as well as a small amount of bone graft which was also placed into the interbody cage itself. Protecting the soft tissue structures and neural structures I was able place the interbody cage in good alignment and good position with good fit and fill at the interbody space. Position was confirmed with C-arm guidance. Good hemostasis maintained. There is no evidence of any dural tear or leak. The wound was irrigated and suctioned dry. With the hardware intact, intraoperative C-arm imaging was again taken which showed good alignment and position of the hardware at the appropriate levels at L4-L5 and S1. We were then able to measure, contour and place the rods and appropriate hardware bilaterally. I was able to place capcrews, tighten them down, and torque them with the torque screwdriver appropriately. With this intact I was able to place the local autogenous bone graft with additional bone graft enhancer as necessary into the posterior lateral gutters over the decorticated transverse processes and facet joints on the contralateral side. The remainder of the bone graft was placed over the facet joint on the contralateral side after taking down the facet joint capsule. With the bone graft intact, a stable construct, and good decompression at the appropriate levels, we were able to proceed with closure. Good hemostasis was maintained. There is no evidence of dural tear or leak. The fascia was closed for a watertight closure. he subcuticular tissue was closed with absorbable suture. The wound was cleaned and dried and dressed with the appropriate dressing. The drapes were broken down. The patient was gently rolled back onto their hospital bed being careful to maintain their cervical spine and good neutral alignment and position. They were woken up by anesthesia, extubated, and brought to the recovery room in good stable condition. The patient will be admitted to the hospital for appropriate postoperative care, medical management and monitoring. We will continue to follow them closely about the postoperative course.
[2022-09-03] MEDS: HYDROmorphone 0.5 MG/0.5 ML SYRINGE IVP ONE ×3 (14:25→15:04)
[2022-09-03] MEDS ORDERED: diphenhydrAMINE 50 MG/ML 1 ML VIAL IVP ONE ×2 (14:35)
[2022-09-03] MEDS: SODIUM CHLORIDE 0.9% 1,000 ML IV SCH (15:47)
[2022-09-03] MEDS: HYDROmorphone 1 MG/ML 1 ML SYRINGE IVP PRN ×2 (17:44→20:50)
--- NOTE | 2022-09-03 17:46 | P.CONS ---
History of Present Illness - Reason for Consult Consult date: 09/03/22 medical management - History of Present Illness Patient is a 41-year-old female with history of chronic back pain and left lower extremity radiculopathy presented for elective revision of laminectomy and de compression of L4, L5, and S1. [facility][note 3] has been consulted for medical management. She claims that she has significant low back pain postop. She denies any chest pain, shortness of breath, abdominal pain, urinary or bowel complaints. Currently has a Hogan catheter in place Patient seen and examined at bedside. Pertinent positives and negatives as discussed in HPI, a complete review of systems was performed and all other systems are negative. Vital signs reviewed General: nontoxic, no distress, appears at stated age Derm: warm, dry, has a back dressing Head: atraumatic, normocephalic, symmetric Eyes: EOMI, no lid lag, anicteric sclera, pupils equal round reactive to light ENT: Nose and ears atraumatic Neck: No thyromegaly, supple Mouth: no lip lesion, mucus membranes moist Cardiovascular: S1S2 reg, no murmur, no edema Lungs: clear to auscultation bilateral, no rhonchi, no rales, no wheeze, no accessory muscle use Abdominal: soft, nontender to palpation, no guarding, no appreciable organomegaly Ext: no gross muscle atrophy, muscle strength muscle strength 5 out of 5 in all 4 extremities, no contractures Neuro: CN II-XII grossly intact Psych: Alert, oriented, appropriate affect Assessment/Plan: Chronic back pain, left lower extremity radiculopathy Status post spinal surgery -Pain control, and DVT prophylaxis per surgery Hypertension - Likely in the setting of pain Labs pending, patient denies any other chronic medical problems Thank you for allowing us to participate in the care of this pleasant patient. Do not hesitate to contact us with questions. Someone can be reached from the [facility] [place] hospital[place] group all hours of the day at [phone] or via [employer]. Past Medical History Past Medical History: Musculoskeletal Disorder Additional Past Medical History / Comment(s): BACK PAIN History of Any Multi-Drug Resistant Organisms: None Reported Past Surgical History: Appendectomy, Back Surgery, Orthopedic Surgery, Uterine Ablation Additional Past Surgical History / Comment(s): 02/21/15 Laminectomy with decompression L5-S1, discectomy for decompression L5-S1 fluroscopic guidance, STEROID INJECTIONS-PAIN Aug Laminectomy L5-L4 Past Anesthesia/Blood Transfusion Reactions: Motion Sickness, Postoperative Nausea & Vomiting (PONV) Additional Past Anesthesia/Blood Transfusion Reaction / Comm: STATES "I FREAK OUT IN POST OP WHEN I HAVE A FACE MASK ON" Smoking Status: Former smoker - Past Family History Father Family Medical History: Cancer, CVA/TIA Medications and Allergies Home Medications Medication Instructions Recorded Confirmed Type HYDROcodone/APAP 10-325MG [[place] 1 tab PO Q4-6H PRN 09/01/22 09/03/22 History 10-325] Ibuprofen [Motrin] 800 mg PO Q8H PRN 09/01/22 09/03/22 History Zolpidem Tartrate [Ambien] 10 mg PO HS PRN 09/01/22 09/03/22 History Allergies Allergy/AdvReac Type Severity Reaction Status Date / Time tramadol Allergy face numb Verified 09/03/22 09:30 Physical Exam Vitals: Vital Signs Temp Pulse Resp BP Pulse Ox 09/03/22 16:30 98 17 153/94 95 09/03/22 16:15 98 16 169/87 97 09/03/22 16:00 97 18 147/87 93 L 09/03/22 15:45 107 H 18 148/89 95 09/03/22 15:15 93 17 164/95 93 L 09/03/22 15:00 93 16 167/80 96 09/03/22 14:25 103 H 16 169/89 96 09/03/22 14:10 98.3 F 96 16 168/85 96 09/03/22 09:25 97.2 F L 81 18 142/79 96 Intake and Output 09/03/22 09/03/22 09/03/22 06:59 14:59 22:59 Intake Total 2101 Output Total 350 Balance 1751 Intake: IV 2101 Output: Urine 200 Estimated Blood Loss 150 Other: Weight 106.8 kg
[2022-09-03] MEDS: HYDROcodone/APAP 10-325MG 1 EACH TAB PO PRN ×2 (18:53→22:15)
[2022-09-03] MEDS: CYCLOBENZAPRINE 10 MG TAB PO PRN (20:39)
[2022-09-03] MEDS: ZOLPIDEM 5 MG TAB PO PRN (20:39)
[2022-09-03] MEDS: ONDANSETRON 4 MG/2 ML VIAL IVP PRN (22:15)
[2022-09-04] MEDS: HYDROmorphone 1 MG/ML 1 ML SYRINGE IVP PRN ×6 (01:33→23:35)
[2022-09-04] MEDS: HYDROcodone/APAP 10-325MG 1 EACH TAB PO PRN ×5 (02:40→21:02)
[2022-09-04] MEDS: CYCLOBENZAPRINE 10 MG TAB PO PRN ×3 (04:04→21:03)
[2022-09-04] MEDS: SODIUM CHLORIDE 0.9% 1,000 ML IV SCH ×2 (05:37→16:58)
[2022-09-04] MEDS: ONDANSETRON 4 MG/2 ML VIAL IVP PRN ×2 (05:38→15:23)
[2022-09-04] MEDS: LACTATED RINGERS 1,000 ML IV SCH (08:58)
[2022-09-04] MEDS: SENNOSIDES-DOCUSATE SODIUM 1 EACH TAB PO SCH (08:59)
[2022-09-04 10:33] LABS: Basophils # (A) 0.03 X 10*3/uL (0.00-0.10); Basophils % (A) 0.2 %; Eosinophils # (A) 0 X 10*3/uL (0.04-0.35); Eosinophils % (A) 0 %; HCT 40.2 % (37.2-46.3); HGB 13.3 g/dL (12.0-15.0); Immature Grans, Automated 0.5 %; Lymphocytes # (A) 0.72 X 10*3/uL (0.90-5.00); Lymphocytes % (A) 4.1 %; MCH 29.2 pg (27.0-32.0); MCHC 33.1 g/dL (32.0-37.0); MCV 88.2 fL (80.0-97.0); Mean Platelet Volume 9.5 fL (9.5-12.2); Monocytes # (A) 1.44 X 10*3/uL (0.20-1.00); Monocytes % (A) 8.1 %; NRBC Per 100 WBC 0 /100 WBCS (0.0-0.0); Neutrophils # (A) 15.44 X 10*3/uL (1.80-7.70); Neutrophils % (A) 87.1 %; Platelet Count 288 X 10*3/uL (140-440); RBC 4.56 X 10*6/uL (4.10-5.20); RDW 12.8 % (11.5-14.5); WBC 17.72 X 10*3/uL (4.50-10.00)
[2022-09-04 10:49] LABS: African American GFR (CKD) 106.1 (60.0-200.0); BUN/Creat Ratio 8.13 Ratio (12.00-20.00); Blood Urea Nitrogen 6.5 mg/dL (9.0-27.0); Calcium 8.9 mg/dL (8.7-10.3); Non-African American GFR(CKD) 91.6 (60.0-200.0); Potassium 3.6 mmol/L (3.5-5.5)
--- NOTE | 2022-09-04 10:53 | P.PN ---
Progress Note - Text Progress Note Date: 09/04/22 Postoperative day #1 Patient is seen and examined today at bedside. The patient has some pain around the surgical site as expected. Pain is being controlled with medication. She is up in a chair but complaining of pain as expected. Denies any nausea or vomiting. Denies any changes in her lower extremities Physical Exam Afebrile with stable vital signs Abdomen is soft nontender. Chest has good excursion deep and space expiration The incision site is clean dry and intact. No erythema there is no purulence. The dressing is clear Extremities have not had neurologic change from prior to surgery. She has sustained dorsal flexion plantar flexion and EHL intact Calves and thighs were soft nontender without evidence of DVT. Assessment/Plan Postoperative day #1 status post minimally invasive decompression fusion with revision decompression L4 5 L5-S1 or her recurrent stenosis lower extremity radiculopathy and recurrent herniation Patient is progressing as expected from the surgery. It is good to see her up in a chair this morning but will need to continue to manage her pain well. We will continue to increase the patient's mobilization with therapy. We will continue pain control with oral or IV medications. Hopefully she'll be comfortable for discharge home in the next 1-2 days We'll continue to follow patient closely.
--- NOTE | 2022-09-04 11:06 | P.PN ---
Subjective Progress Note Date: 09/04/22 Principal diagnosis: med management Hospital Course: Patient is a 41-year-old female with history of chronic back pain and left lower extremity radiculopathy presented for elective revision of laminectomy and decompression of L4, L5, and S1. [facility] has been consulted for medical management. Subjective: Patient seen and examined at bedside. No acute events overnight. Continues to have low back pain radiating down to her left lower extremity. Hogan catheter taken out this morning. She denies any chest pain, shortness of breath, abdominal pain, or bowel complaints. Pertinent positives and negatives as discussed above, a complete review of systems was performed and all other systems are negative. Vitals Signs Reviewed. General: nontoxic, no distress, appears at stated age Derm: warm, dry, has a back dressing Head: atraumatic, normocephalic, symmetric Eyes: EOMI, no lid lag, anicteric sclera, pupils equal round reactive to light ENT: Nose and ears atraumatic Neck: No thyromegaly, supple Mouth: no lip lesion, mucus membranes moist Cardiovascular: S1S2 reg, no murmur, no edema Lungs: clear to auscultation bilateral, no rhonchi, no rales, no wheeze, no accessory muscle use Abdominal: soft, nontender to palpation, no guarding, no appreciable organomegaly Ext: no gross muscle atrophy, muscle strength muscle strength 5 out of 5 in all 4 extremities, no contractures Neuro: CN II-XII grossly intact Psych: Alert, oriented, appropriate affect Assessment and Plan: Chronic back pain, left lower extremity radiculopathy Status post spinal surgery -Pain control, and DVT prophylaxis per surgery Leukocytosis -Likely reactive Hypertension - Likely in the setting of pain - Blood pressure improved today Patient denies any other chronic medical problems Thank you for allowing us to participate in the care of this pleasant patient. Do not hesitate to contact us with questions. Someone can be reached from the [facility] [place] hospitalist group all hours of the day at [phone] or via [employer]. Objective - Vital Signs Vital signs: Vital Signs Temp 99.0 F 09/04/22 05:00 Pulse 107 H 09/04/22 08:00 Resp 20 09/04/22 08:00 BP 122/83 09/04/22 05:00 Pulse Ox 94 L 09/04/22 05:00 FiO2 Intake & Output 09/03/22 09/04/22 09/04/22 18:59 06:59 18:59 Intake Total 2101 900 Output Total 1050 3000 Balance 1051 -2100 Weight 106.8 kg Intake: IV 2101 Intake, IV Titration 400 Amount Lactated Ringers 1,000 ml 200 @ 20 mls/hr IV .Q24H DOMINGO Rx#:[id number] Sodium Chloride 0.9% 1, 150 000 ml @ 75 mls/hr IV . [id number] DOMINGO Rx#:[id number] ceFAZolin 2 gm In Sodium 50 Chloride 0.9% 50 ml @ 100 mls/hr IVPB Q8H DOMINGO Rx#: [id number] Oral 500 Output: Urine 900 3000 Uretheral (Hogan) 1000 Estimated Blood Loss 150 Other: Voiding Method Indwelling Catheter Indwelling Catheter - Labs CBC & Chem 7: 09/04/22 07:21 09/04/22 07:21 Labs: Abnormal Lab Results - Last 24 Hours (Table) 09/04/22 09/04/22 Range/Units 07:21 07:21 WBC 17.72 H (4.50-10.00) X 10*3/uL Immature Gran # 0.09 H (0.00-0.04) X 10*3/uL Neutrophils # 15.44 H (1.80-7.70) X 10*3/uL Lymphocytes # 0.72 L (0.90-5.00) X 10*3/uL Monocytes # 1.44 H (0.20-1.00) X 10*3/uL Eosinophils # 0 L (0.04-0.35) X 10*3/uL Sodium 134 L (135-145) mmol/L Carbon Dioxide 28.0 H (20.0-27.5) mmol/L BUN 6.5 L (9.0-27.0) mg/dL BUN/Creatinine Ratio 8.13 L (12.00-20.00) Ratio Glucose 152 H (70-110) mg/dL
[2022-09-04] MEDS: ZOLPIDEM 5 MG TAB PO PRN (23:35)
[2022-09-04] MEDS: SENNOSIDES-DOCUSATE SODIUM 1 EACH TAB PO PRN (23:40)
[2022-09-05] MEDS: HYDROcodone/APAP 5-325MG 1 EACH TAB PO PRN ×2 (02:32→06:33)
[2022-09-05] MEDS: HYDROmorphone 0.5 MG/0.5 ML SYRINGE IVP PRN (04:52)
[2022-09-05] MEDS: SODIUM CHLORIDE 0.9% 1,000 ML IV SCH (06:32)
--- NOTE | 2022-09-05 08:51 | P.DS ---
Providers Date of admission: 09/04/22 08:02 Expected date of discharge: 09/05/22 Attending physician: Yesi Peres Consults: 09/03/22 14:08 Consult Physician Routine Consulting Provider: Blanca Mejia Consult Reason/Comments: Medical management Do you want consulting provider notified?: Yes Primary care physician: Michelle Lewis - Discharge Diagnosis(es) (1) Lumbar stenosis Current Visit: Yes Status: Acute (2) Lumbar herniated disc Current Visit: Yes Status: Acute (3) Lumbar degenerative disc disease Current Visit: Yes Status: Acute (4) Lumbar facet arthropathy Current Visit: Yes Status: Acute (5) Low back pain Current Visit: Yes Status: Acute (6) Radiculopathy with lower extremity symptoms Current Visit: Yes Status: Acute (7) Hyperlipidemia Current Visit: Yes Status: Acute (8) Status post lumbar spinal fusion Current Visit: Yes Status: Acute (9) History of laminectomy Current Visit: Yes Status: Acute Hospital Course: This is a pleasant 41-year-old female who presented with L4-5 and L5-S1 recurrent disc herniation with spinal stenosis, history of previous laminectomy decompression at L4-5 and L5-S1, lumbar degenerative disc disease, lumbar facet arthropathy, low back pain, and lower extremity radiculopathy who failed outpatient conservative therapy. She admitted for an L4-5 and L5-S1 and only invasive posterior lateral decompression and fusion with transforaminal lumbar interbody fusion and revision laminectomy. She has been improving postoperatively. She is able to increase her mobility and ambulation. She is eating and voiding without difficulty. The patient tolerated the procedure well and did well postoperatively. She feels she is ready for discharge home today. Condition on day of discharge stable. Patient was cleared preoperatively for surgery by Dr. Lewis. Patient currently denies any nausea, vomiting, fever, or chills. Patient is eating and voiding freely without difficulty. Patient may shower Optifoam dressing intact. Patient may remove Optifoam dressing in 3 days and shower without a dressing at that time. Patient should refrain from driving until at least after their first follow-up appointment in the office. Patient should avoid excessive bending, lifting, and twisting; no lifting greater than 10 pounds. Prescription is written, signed, and provided to case management to obtain a 2 wheeled walker which she may use to aid in ambulation as needed. MAPS has been reviewed today, 09/05/2022. An "Opiod Start Talking" Form has been signed and placed in the patient's chart. A prescription has been written for hydrocodone 7.5 mg/325 mg 1 tab every 4 hours as needed for pain, dispense #42. Patient is also given a prescription for cyclobenzaprine 10 mg, 1 tab 3 times a day, as needed for muscle spasm, dispensed #60. Patient's other medical diagnoses include hyperlipidemia. Physical Exam on day of discharge: Patient is awake, alert, and oriented 3 Vital signs stable Good chest excursion with deep inspiration and expiration Abdomen soft nontender No signs or symptoms of DVT; no calf pain Extensor hallucis longus, plantarflexion, and dorsiflexion positive sustained bilateral lower extremities Surgical incision sites are clean, dry, and intact; no erythema, purulence, or signs of infection Optifoam dressing intact Procedures: L4-5 and L5-S1 and only invasive posterior lateral decompression and fusion with transforaminal lumbar interbody fusion and revision laminectomy Patient Condition at Discharge: Stable Plan - Discharge Summary Discharge Rx Participant: Yes New Discharge Prescriptions: New Cyclobenzaprine [Flexeril] 10 mg PO TID PRN #60 tab PRN Reason: Muscle Spasm HYDROcodone/APAP 7.5-325MG [[place] 7.5-325] 1 each PO Q4HR PRN #42 tab PRN Reason: Pain No Action Zolpidem Tartrate [Ambien] 10 mg PO HS PRN PRN Reason: Insomnia Ibuprofen [Motrin] 800 mg PO Q8H PRN PRN Reason: Pain HYDROcodone/APAP 10-325MG [[place] 10-325] 1 tab PO Q4-6H PRN PRN Reason: Pain Discharge Medication List HYDROcodone/APAP 10-325MG [[place] 10-325] 1 tab PO Q4-6H PRN 09/01/22 [History] Ibuprofen [Motrin] 800 mg PO Q8H PRN 09/01/22 [History] Zolpidem Tartrate [Ambien] 10 mg PO HS PRN 09/01/22 [History] Cyclobenzaprine [Flexeril] 10 mg PO TID PRN #60 tab 09/05/22 [Rx] HYDROcodone/APAP 7.5-325MG [[place] 7.5-325] 1 each PO Q4HR PRN #42 tab 09/05/22 [Rx] Follow up Appointment(s)/Referral(s): Dandy Arreola, CHRIS [PHYSICIAN [employer]] - 2 Weeks (Patient may follow-up with Dandy Arreola PA-C or Dr. Eloy Peres at [facility] in 2-3 weeks following discharge. ) Activity/Diet/Wound Care/Special Instructions: 1. Patient may shower with Optifoam dressing intact. 2. Patient may remove Optifoam dressing in 3 days and shower without a dressing at that time. 3. Patient should refrain from driving until at least after their first follow- up appointment in the office. 4. Patient should avoid excessive bending, twisting, lifting; avoid overhead lifting; no lifting greater than 10 pounds 5. Take medications as prescribed 6. Patient should avoid anti-inflammatory medications over the next 6 weeks postoperatively 7. Patient may use 2 wheeled walker to aid in ambulation as needed 8. Do not soak in tub Discharge Disposition: HOME SELF-CARE
[2022-09-05] MEDS: SENNOSIDES-DOCUSATE SODIUM 1 EACH TAB PO PRN (09:28)
[2022-09-05] MEDS: SENNOSIDES-DOCUSATE SODIUM 1 EACH TAB PO SCH (09:28)
[2022-09-05] MEDS: CYCLOBENZAPRINE 10 MG TAB PO PRN (09:28)
[2022-09-05] MEDS: HYDROcodone/APAP 10-325MG 1 EACH TAB PO PRN (10:48)
--- NOTE | 2022-09-05 11:22 | P.PN ---
Subjective Progress Note Date: 09/05/22 Principal diagnosis: med management Hospital Course: Patient is a 41-year-old female with history of chronic back pain and left lower extremity radiculopathy presented for elective revision of laminectomy and decompression of L4, L5, and S1. [facility] has been consulted for medical management. Subjective: Patient seen and examined at bedside. No acute events overnight. Continues to have low back pain radiating down to her left lower extremity. She denies any chest pain, shortness of breath, abdominal pain, or bowel complaints. Able to transfer out of the bed and chair on her own. Pertinent positives and negatives as discussed above, a complete review of systems was performed and all other systems are negative. Vitals Signs Reviewed. General: nontoxic, no distress, appears at stated age Derm: warm, dry, has a back dressing Head: atraumatic, normocephalic, symmetric Eyes: EOMI, no lid lag, anicteric sclera, pupils equal round reactive to light ENT: Nose and ears atraumatic Neck: No thyromegaly, supple Mouth: no lip lesion, mucus membranes moist Cardiovascular: S1S2 reg, no murmur, no edema Lungs: clear to auscultation bilateral, no rhonchi, no rales, no wheeze, no accessory muscle use Abdominal: soft, nontender to palpation, no guarding, no appreciable organomegaly Ext: no gross muscle atrophy, muscle strength muscle strength 5 out of 5 in all 4 extremities, no contractures Neuro: CN II-XII grossly intact Psych: Alert, oriented, appropriate affect Assessment and Plan: Chronic back pain, left lower extremity radiculopathy Status post spinal surgery -Pain control, and DVT prophylaxis per surgery Leukocytosis -Likely reactive Hypertension Sinus tachycardia - Likely in the setting of pain - improved Patient denies any other chronic medical problems Patient is medically optimized for discharge home. Thank you for allowing us to participate in the care of this pleasant patient. Do not hesitate to contact us with questions. Someone can be reached from the [facility] hospitalist group all hours of the day at [phone] or via perfect serve. Objective - Vital Signs Vital signs: Vital Signs Temp 98.5 F 09/05/22 05:02 Pulse 102 H 09/05/22 05:02 Resp 17 09/05/22 05:02 BP 139/85 09/05/22 05:02 Pulse Ox 95 09/05/22 05:02 FiO2 Intake & Output 09/04/22 09/05/22 09/05/22 18:59 06:59 18:59 Output Total 2 Balance -2 Output: Urine 2 Other: Voiding Method Indwelling Catheter Indwelling Catheter # Voids 1 - Labs CBC & Chem 7: 09/04/22 07:21 09/04/22 07:21
[2022-09-05 12:03] VITALS: BP 128/82; PULSE 99; RESP 16; TEMP 98.8
== END 2022-09-05 14:45 | disposition home or self-care (01) ==
LOC: OR 08:56 → 5NMEDONC 14:18 → OR 09-04 08:02
PROVIDERS: ADMIT Orthopaedic Surgery Orthopaedic Surgery of the Spine; ATTEND Orthopaedic Surgery Orthopaedic Surgery of the Spine
DX: M48.07 Spinal stenosis, lumbosacral region (principal); M51.17 Intervertebral disc disorders with radiculopathy, lumbosacral region; G89.29 Other chronic pain; D72.829 Elevated white blood cell count, unspecified; E78.5 Hyperlipidemia, unspecified; E66.9 Obesity, unspecified; Z68.39 Body mass index [BMI] 39.0-39.9, adult; Z82.49 Family history of ischemic heart disease and other diseases of the circulatory system; Z87.891 Personal history of nicotine dependence; Z90.49 Acquired absence of other specified parts of digestive tract; Z80.9 Family history of malignant neoplasm, unspecified; Z98.890 Other specified postprocedural states; Z82.3 Family history of stroke; Z79.899 Other long term (current) drug therapy; Z88.5 Allergy status to narcotic agent; I10 Essential (primary) hypertension; M47.26 Other spondylosis with radiculopathy, lumbar region
CPT/HCPCS: 97530; 97162; 81025; 86900; 86901; 80048; 85025; 86850; 72100; 22633; 22634; 20938; G0378 ×2; C1713 ×2; C1762; J2250; J3370; J0330; J1200; J2710; J0690 ×3; J2405 ×2; J3010; J1170 ×4; J2704; J2001